=== PATIENT | female | born 1985 | race Caucasian/White ===

== ENCOUNTER 2023-12-07 03:53 | Emergency (ER) | payer MEDICAID ==
[~2023-12-07] VITALS: Ht 162.6 cm; Wt 60.0 kg
[2023-12-07 03:57] VITALS: O2SAT 99
[2023-12-07 06:07] LABS: BASOPHILS % 0.3 % (0.0-2.0); EOSINOPHILS % 0.9 % (0.0-5.0); HEMATOCRIT. 38.3 % (36.0-48.0); HEMOGLOBIN. 12.6 g/dL (12.0-16.0); LYMPHOCYTES % 18.5 % (20.0-50.0); MEAN CORPUSCULAR HGB CONC 32.9 g/dL (31.0-37.0); MEAN CORPUSCULAR VOLUME 90.9 fL (81.0-99.0); MEAN PLATELET VOLUME 9.8 fl (7.4-10.4); MONOCYTES % 4.9 % (2.0-8.0); NEUTROPHILS % 75.4 % (40.0-76.0); PLATELET 220 x1000/uL (130-400); RED BLOOD CELL COUNT 4.21 mill/uL (4.2-5.4); RED CELL DISTRIBUTION WIDTH 12.9 % (11.6-14.6); WHITE BLOOD COUNT 8.4 x1000/uL (4.5-11.0)
[2023-12-07 06:10] LABS: ALANINE AMINOTRANSFERASE 25 IU/L (10-49); ALBUMIN 4.1 g/dL (3.2-4.8); ASPARTATE AMINOTRANSFERASE 18 IU/L (<34); BILIRUBIN TOTAL 0.3 mg/dL (0.1-1.0); CALCIUM 8.9 mg/dL (8.7-10.4); CARBON DIOXIDE 24 mEq/L (21-32); CHLORIDE 107 mEq/L (98-107); CREATININE 0.6 mg/dL (0.6-1.0); GLUCOSE 133 mg/dL (70-105); POTASSIUM 3.9 mEq/L (3.5-5.1); SODIUM 138 mEq/L (136-145); TROPONIN I HIGH SENSITIVITY 5 ng/L (3.0-34); UREA NITROGEN BLOOD 17 mg/dL (9-23)
[2023-12-07] MEDS ORDERED: PANTOPRAZOLE SODIUM 40 MG/VIAL IV ONE ×2 (06:30→08:30)
[2023-12-07 07:09] LABS: HCG SCREEN NEGATIVE
[2023-12-07] MEDS ORDERED: MAGNESIUM/ALUMINUM HYDROXIDE/SIMETHICONE 30ML UDC PO ONE (08:30)
[2023-12-07] MEDS ORDERED: ONDANSETRON HCL 4MG/2ML INJ IV ONE (08:30)
[2023-12-07] MEDS ORDERED: ACETAMINOPHEN 325MG TABLET PO ONE (08:30)
[2023-12-07] MEDS ORDERED: TOPUD MT ×2 (11:38→12:31)
[2023-12-07] MEDS ORDERED: NITR-87 MT (11:38)
[2023-12-07] MEDS ORDERED: IBUP-1523 MT (11:38)
[2023-12-07] MEDS ORDERED: MAGNESIUM/ALUMINUM HYDROXIDE/SIMETHICONE 30ML UDC PO NR (12:30)
[2023-12-07] MEDS ORDERED: ONDANSETRON HCL 4MG/2ML INJ IV NR (12:30)
[2023-12-07] MEDS ORDERED: ACETAMINOPHEN 325MG TABLET PO NR (12:30)
[2023-12-07] MEDS ORDERED: PROT20 MT (12:31)
[2023-12-07 12:34] VITALS: TEMP 97.8
[2023-12-07 12:37] VITALS: BP 96/54; PULSE 56; RESP 14
== END 2023-12-07 13:24 | disposition home or self-care (01) ==
LOC: ER 03:53
DX: N39.0 Urinary tract infection, site not specified (principal)
CPT/HCPCS: 80053; 84703; 83880; 85025; 84484; 36415; 71045; 74176; 93005; 96374; 96375; 99285; J2405; C9113; Z7610 ×2

== ENCOUNTER 2024-01-27 00:39 | Emergency (ER) | payer MEDICAID ==
[~2024-01-27] VITALS: Ht 154.9 cm; Wt 69.0 kg
[~2024-01-27 00:39] MED LIST: IBUP-1523 MT; NITR-87 MT; PROT20 MT; TOPUD MT
[2024-01-27 00:59] VITALS: BP 125/81; PULSE 65; RESP 18; TEMP 98.6; O2SAT 100
[2024-01-27 01:50] LABS: BASOPHILS % 0.5 % (0.0-2.0); EOSINOPHILS % 0.9 % (0.0-5.0); HEMATOCRIT. 36.6 % (36.0-48.0); HEMOGLOBIN. 12.6 g/dL (12.0-16.0); LYMPHOCYTES % 11.7 % (20.0-50.0); MEAN CORPUSCULAR HEMOGLOBIN 30.7 pg (28.0-32.0); MEAN CORPUSCULAR HGB CONC 34.4 g/dL (31.0-37.0); MEAN CORPUSCULAR VOLUME 89.3 fL (81.0-99.0); MEAN PLATELET VOLUME 9.5 fl (7.4-10.4); MONOCYTES % 4.3 % (2.0-8.0); NEUTROPHILS % 82.6 % (40.0-76.0); PLATELET 196 x1000/uL (130-400); RED CELL DISTRIBUTION WIDTH 13.1 % (11.6-14.6); WHITE BLOOD COUNT 10.5 x1000/uL (4.5-11.0)
[2024-01-27 01:53] LABS: DIFFERENTIAL COMMENT 1
[2024-01-27 02:12] LABS: ALANINE AMINOTRANSFERASE 24 IU/L (10-49); ALBUMIN 4.5 g/dL (3.2-4.8); ASPARTATE AMINOTRANSFERASE 19 IU/L (<34); BILIRUBIN TOTAL 0.4 mg/dL (0.1-1.0); CALCIUM 8.8 mg/dL (8.7-10.4); CARBON DIOXIDE 27 mEq/L (21-32); CHLORIDE 104 mEq/L (98-107); CREATININE 0.8 mg/dL (0.6-1.0); GLUCOSE 146 mg/dL (70-105); POTASSIUM 3.8 mEq/L (3.5-5.1); PROTEIN TOTAL 7.3 g/dL (6.0-8.3); SODIUM 136 mEq/L (136-145); TROPONIN I HIGH SENSITIVITY 4 ng/L (3.0-34); UREA NITROGEN BLOOD 14 mg/dL (9-23)
== END 2024-01-27 02:58 | disposition left against medical advice (07) ==
LOC: ER 00:39
DX: R07.89 Other chest pain (principal); M54.9 Dorsalgia, unspecified; Z53.21 Procedure and treatment not carried out due to patient leaving prior to being seen by health care provider
CPT/HCPCS: 36415; 80053; 84484; 85025; 93005; 99281